=== PATIENT | female | born 1995 | race Caucasian/White ===

== ENCOUNTER 2018-03-19 07:01 | Emergency (ER) | payer OTHER ==
[2018-03-19] MEDS ORDERED: NS 1,000 ML IV ONE ×2 (07:15→07:36)
--- NOTE | 2018-03-19 07:26 | EDPHY ---
H & P Time Seen by Provider: 03/19/18 07:25 HPI/ROS: Chief complaint. Nausea and vomiting and diarrhea HPI. 23-year-old female presents with nausea vomiting and diarrhea that began this morning about 6:00 a.m. She arrives by EMS and received 2 mg Zofran IV with improvement. She was a little bit nauseated yesterday. She had crampy abdominal pain that was diffuse. Exposed to vomiting and diarrhea illness from her boyfriend who had similar symptoms 2 days ago. No radiation of crampy pain to back. No urinary symptoms. No chest pain or shortness of breath. No fever. No recent travel. ROS 10 systems were reviewed and negative with the exception of the elements mentioned in the history of present illness Past Medical/Surgical History: Healthy Social History: Single, nonsmoker, no alcohol Smoking Status: Never smoked Physical Exam: General Appearance: Alert pleasant well-developed female mild distress vital signs are stable Eyes: Pupils equal and round no pallor or injection. ENT, Mouth: Mucous membranes are moist. Respiratory: There are no retractions, lungs are clear to auscultation. Cardiovascular: Regular rate and rhythm. Gastrointestinal: Abdomen is soft and nontender, no masses, bowel sounds normal. Neurological: Awake and alert, sensory and motor exams grossly normal. Skin: Warm and dry, no rashes. Musculoskeletal: Neck is supple nontender. Extremities symmetrical, full range of motion. Psychiatric: Patient is oriented X 3, there is no agitation. Constitutional: Initial Vital Signs Temperature (C) 36.9 C 03/19/18 07:05 Heart Rate 69 03/19/18 07:05 Respiratory Rate 16 03/19/18 07:05 Blood Pressure 98/60 L 03/19/18 07:05 O2 Sat (%) 97 03/19/18 07:05 O2 Delivery Mode Room Air Allergies/Adverse Reactions: No Known Allergies Allergy (Unverified 03/19/18 07:09) Home Medications: Medication Instructions Recorded Ondansetron Odt [Zofran Odt] 4 mg PO Q4PRN PRN #4 tab 03/19/18 Medical Decision Making Procedures: IV normal saline with initial target 2 L. ED Course/Re-evaluation: Re-evaluation at 8:20 a.m. Patient is much improved. She is achy and chilled. She will be given Toradol IV. No vomiting or diarrhea Patient improved and stable at 11:30 a.m. On re-evaluation. No vomiting or diarrhea. Taking oral fluids. Patient and I discussed laboratory evaluation, treatment plan including criteria for return importance of follow-up and further evaluation. She expresses understanding Differential Diagnosis: Exposure to boyfriend with similar symptoms. This is likely viral syndrome possibly norovirus. I considered electrolyte abnormalities as well as dehydration - Data Points Laboratory Results: Laboratory Results 03/19/18 07:15 03/19/18 07:15 03/19/18 03/19/18 03/19/18 07:15 07:15 07:15 WBC 13.94 10^3/uL H 10^3/uL (3.80-9.50) RBC 4.91 10^6/uL 10^6/uL (4.18-5.33) Hgb 15.0 g/dL g/dL (12.6-16.3) Hct 44.8 % % (38.0-47.0) MCV 91.2 fL fL (81.5-99.8) MCH 30.5 pg pg (27.9-34.1) MCHC 33.5 g/dL g/dL (32.4-36.7) RDW 13.2 % % (11.5-15.2) Plt Count 415 10^3/uL H 10^3/uL (150-400) MPV 9.8 fL fL (8.7-11.7) Neut % (Auto) 76.9 % H % (39.3-74.2) Lymph % (Auto) 17.7 % % (15.0-45.0) [place] % (Auto) 4.1 % L % (4.5-13.0) Eos % (Auto) 0.4 % L % (0.6-7.6) Baso % (Auto) 0.4 % % (0.3-1.7) Nucleat RBC Rel Count 0.0 % % (0.0-0.2) Absolute Neuts (auto) 10.72 10^3/uL H 10^3/uL (1.70-6.50) Absolute Lymphs (auto) 2.47 10^3/uL 10^3/uL (1.00-3.00) Absolute Monos (auto) 0.57 10^3/uL 10^3/uL (0.30-0.80) Absolute Eos (auto) 0.06 10^3/uL 10^3/uL (0.03-0.40) Absolute Basos (auto) 0.05 10^3/uL 10^3/uL (0.02-0.10) Absolute Nucleated RBC 0.00 10^3/uL 10^3/uL (0-0.01) Immature Gran % 0.5 % % (0.0-1.1) Immature Gran # 0.07 10^3/uL 10^3/uL (0.00-0.10) Sodium 137 mEq/L mEq/L (135-145) Potassium 4.3 mEq/L mEq/L (3.5-5.2) Chloride 104 mEq/L mEq/L (97-110) Carbon Dioxide 25 mEq/l mEq/l (22-31) Anion Gap 8 mEq/L mEq/L (6-14) BUN 18 mg/dL mg/dL (7-23) Creatinine 1.0 mg/dL mg/dL (0.6-1.0) Estimated GFR > 60 Glucose 145 mg/dL H mg/dL (70-100) Calcium 9.2 mg/dL mg/dL (8.5-10.4) Beta HCG, Qual NEGATIVE Medications Given: Discontinued Medications Sodium Chloride (Ns) 1,000 mls @ 0 mls/hr IV EDNOW ONE; Wide Open PRN Reason: Protocol Stop: 03/19/18 07:16 Last Admin: 03/19/18 07:16 Dose: 1,000 mls Sodium Chloride (Ns) 1,000 mls @ 0 mls/hr IV EDNOW ONE; Wide Open PRN Reason: Protocol Stop: 03/19/18 07:37 Last Admin: 03/19/18 08:29 Dose: 1,000 mls Ketorolac Tromethamine (Toradol) 30 mg IVP EDNOW ONE Stop: 03/19/18 08:20 Last Admin: 03/19/18 08:37 Dose: 30 mg Departure - Departure Disposition: Home, Routine, Self-Care Clinical Impression: Acute gastroenteritis Condition: Good Instructions: Gastroenteritis (ED) Additional Instructions: Frequent, small sips fluids while nauseated. Gradual diet advancement. Zofran 1 pill every 2-4 hours as needed for nausea and vomiting Return for worsening symptoms including worsening abdominal pain Recheck in 2 days if not improved Referrals: Patient,NotPresent [Unknown] - As per Instructions [facility] [Outside] - 1 day, if not improved Prescriptions: Ondansetron Odt [Zofran Odt] 4 mg PO Q4PRN PRN #4 tab PRN Reason: Nausea/Vomiting, Use 1st
[2018-03-19 07:44] LABS: PLATELET COUNT 415 10^3/uL (150-400)
[2018-03-19] MEDS ORDERED: KETOROLAC 30 MG/1 ML SDV IVP ONE (08:19)
[2018-03-19 10:52] VITALS: BP 115/64
[2018-03-19] MEDS ORDERED: ONDANSETRON 4MG PREPACK#2 BTL TAKEHOME ONE (11:41)
== END 2018-03-19 11:58 | disposition home or self-care (01) ==
DX: K52.9 Noninfective gastroenteritis and colitis, unspecified (principal); E86.9 Volume depletion, unspecified
CPT/HCPCS: 96374; J1885